=== PATIENT | male | born 2000 | race Caucasian/White ===

== ENCOUNTER 2021-02-07 21:58 | Emergency (ER) | payer OTHER ==
[~2021-02-07] VITALS: Ht 177.8 cm; Wt 61.2 kg
[2021-02-07 23:03] VITALS: BP 134/79
== END 2021-02-07 23:03 | disposition home or self-care (01) ==
LOC: ER 21:58
DX: S61.211A Laceration without foreign body of left index finger without damage to nail, initial encounter (principal); Z91.048 Other nonmedicinal substance allergy status; W26.0XXA Contact with knife, initial encounter; Y93.89 Activity, other specified; Y92.89 Other specified places as the place of occurrence of the external cause; Y99.8 Other external cause status